=== PATIENT | male | born 1955 | race Hispanic/Latino ===

== ENCOUNTER 2017-03-30 16:00 | Emergency (ER) | payer SELFPAY ==
[2017-03-30 16:25] VITALS: BP 130/65
[2017-03-30] MEDS ORDERED: NORCO 5/325 PO ONE (18:47)
[2017-03-30] MEDS ORDERED: NEURONTIN PO ONE (18:56)
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
== END 2017-03-30 20:15 | disposition home or self-care (01) ==
LOC: ED 16:00
DX: S20.219A Contusion of unspecified front wall of thorax, initial encounter (principal); I10 Essential (primary) hypertension; F17.200 Nicotine dependence, unspecified, uncomplicated; V87.7XXA Person injured in collision between other specified motor vehicles (traffic), initial encounter; Y93.89 Activity, other specified; Y92.89 Other specified places as the place of occurrence of the external cause; Y99.8 Other external cause status
CPT/HCPCS: 71046; 93005; 93010; 99284